=== PATIENT | female | born 1970 | race Caucasian/White ===

== ENCOUNTER 2017-02-22 18:58 | Emergency (ER) | payer OTHER ==
[~2017-02-22] VITALS: Ht 165.1 cm; Wt 84.8 kg
[~2017-02-22 18:58] MED LIST: ACETAMINOPHEN-1 EAC1 PO; CITRATE OF MAG300 ML PO; OMEPRAZOLE20 M1 PO
[2017-02-22] MEDS ORDERED: METFORMIN HCL1000 MG PO (19:18)
[2017-02-22] MEDS ORDERED: BUPROPION HCL75 MG PO (19:18)
== END 2017-02-22 20:10 | disposition home or self-care (01) ==
LOC: ED 18:58
DX: S63.501A Unspecified sprain of right wrist, initial encounter (principal); Z90.710 Acquired absence of both cervix and uterus; Z88.5 Allergy status to narcotic agent; Z79.84 Long term (current) use of oral hypoglycemic drugs; W19.XXXA Unspecified fall, initial encounter
CPT/HCPCS: 29125; 73110; 99283

== ENCOUNTER 2019-09-24 21:48 | Emergency (ER) | payer OTHER ==
[~2019-09-24] VITALS: Ht 165.1 cm; Wt 72.6 kg
[~2019-09-24 21:48] MED LIST changes: +BUPROPION HCL75 MG PO; +METFORMIN HCL1000 MG PO
[2019-09-24] MEDS ORDERED: OMEPRAZOLE20 MG PO (21:52)
[2019-09-24] MEDS ORDERED: CYCLOBENZAPRINE10 MG PO (23:56)
== END 2019-09-25 00:20 | disposition home or self-care (01) ==
LOC: ED 21:48
DX: S29.012A Strain of muscle and tendon of back wall of thorax, initial encounter (principal); V89.2XXA Person injured in unspecified motor-vehicle accident, traffic, initial encounter
CPT/HCPCS: 72080; 99284-25

== ENCOUNTER 2022-12-11 21:02 | Emergency (ER) | payer OTHER ==
[~2022-12-11] VITALS: Ht 165.1 cm; Wt 78.5 kg
[~2022-12-11 21:02] MED LIST changes: +CYCLOBENZAPRINE10 MG PO; +METFORMIN HCL500 M1 PO; +OMEPRAZOLE20 MG PO
[2022-12-11] MEDS ORDERED: CLEOCIN HCL300 MG PO (21:38)
[2022-12-11] MEDS ORDERED: CEPHALEXIN500 MG PO (21:41)
[2022-12-11] MEDS ORDERED: VITAMIN D21250 MCG PO (21:42)
[2022-12-11] MEDS ORDERED: OZEMPIC0.25 MG/01 SQ (21:42)
[2022-12-11] MEDS ORDERED: CLINDAMYCIN HC300 MG PO (21:57)
[2022-12-11 22:00] VITALS: BP 136/91
== END 2022-12-11 22:00 | disposition home or self-care (01) ==
LOC: ED 21:02
DX: H60.02 Abscess of left external ear (principal); R73.03 Prediabetes; Z88.5 Allergy status to narcotic agent; Z79.899 Other long term (current) drug therapy; Z79.84 Long term (current) use of oral hypoglycemic drugs
CPT/HCPCS: 69000; 99283-25

== ENCOUNTER 2023-02-19 11:36 | Day surgery (SDC) | payer OTHER ==
[~2023-02-19] VITALS: Ht 165.1 cm; Wt 77.3 kg
[~2023-02-19 11:36] MED LIST changes: +CEPHALEXIN500 MG PO; +CLEOCIN HCL300 MG PO; +CLINDAMYCIN HC300 MG PO; +OZEMPIC0.25 MG/01 SQ; +VITAMIN D21250 MCG PO
[2023-02-19] MEDS ORDERED: OMEPRAZOLE20 MG PO (11:46)
[2023-02-19 11:47] VITALS: BP 123/73
--- NOTE | 2023-02-19 13:28 | NUR ---
02/19/23 1328 Krystal Ang 1303- PT ARRIVES TO PACU, WHILE HOOKING UP THE MONITORS, PT SITS UP AND SAYS I'M READY TO GO. PT DENIES NAUSEA OR PAIN. ENCOURAGED TO REST AND JUST GOT TO RECOVERY. PT BACK TO SLEEP AT THIS TIME. CONTINUE TO MONITOR. 1322- PT BP IN THE 90'S SYSTOLICALLY, IV FLUIDS OPENED UP TO COMPLETE LITER. PT SAT UP AND GIVEN ICE WATER. TOLERATING WELL.
[2023-02-19 13:46] VITALS: BP 107/62
--- NOTE | 2023-02-24 17:03 | PATH ---
[facility] [address] [place], [place] [address] Signed SPECIMEN(S): A ANTRUM/PYLORUS BIOPSY SPECIMEN(S): B DUODENAL BIOPSY SPECIMEN(S): C LOWER ESOPHAGEAL BIOPSY SPECIMEN SOURCE: A. ANTRUM/PYLORUS BIOPSY B. DUODENAL BIOPSY C. LOWER ESOPHAGEAL BIOPSY CLINICAL HISTORY: Iron deficiency anemia, personal history of bariatric surgery. FINAL PATHOLOGIC DIAGNOSIS: A. Antrum / pylorus biopsy: - Benign gastric-type mucosa with focal slight chronic inflammation. - Negative for evidence of Helicobacter organisms on immunostained sections. B. Duodenal biopsy: - Benign duodenal mucosa, negative for specific diagnostic abnormality. C. Lower esophageal biopsy: - Benign esophageal epithelium, negative for increased epithelial eosinophils. - Negative for glandular mucosa. JVR:[facility]:C2NR MICROSCOPIC EXAMINATION: Histologic sections of all submitted blocks are examined by light microscopy. These findings, together with the gross examination, support the pathologic diagnosis. A Helicobacter pylori immunostain is performed with appropriate positive and negative controls on block (A1) and is negative for organisms. JVR:[facility] GROSS DESCRIPTION: A. The specimen, labeled and designated "Demario, T, 1." and designated on the requisition "antrum/pylorus stomach biopsy," is received in formalin and consists of four martinez soft tissue fragments that measure 0.1 to 0.4 cm in greatest dimension. The specimen is entirely submitted in (A1). B. The specimen, labeled and designated "Demario, T, 2. " and designated on the requisition "duodenum biopsy," is received in formalin and consists of four martinez soft tissue fragments that measure 0.1 to 0.4 cm in greatest dimension. The specimen is entirely submitted in (B1). PATIENT NAME: AAKASH DANIEL PATHOLOGY DATE OF : 74 REPORT #: [id number] PHYSICIAN: [facility] PCP: JAGRUTI BINGHAM PA-C REPORT IS CONFIDENTIAL AND NOT TO BE RELEASED WITHOUT AUTHORIZATION [facility] [address] [place], [place] [address] Signed C. The specimen, labeled and designated "Demario, T, 3." and designated on the requisition "lower esophagus biopsy," is received in formalin and consists of one white-martinez soft tissue fragment that measures 0.7 cm in greatest dimension. The specimen is entirely submitted in (C1). FB (under the direct supervision of a pathologist) The Gross Description was prepared using a voice recognition system. The report was reviewed for accuracy; however, sound-alike word errors, addition and/or deletions may occur. If there is any question about this report, please contact Client Services. ADDITIONAL NOTES: Immunohistochemical and/or in situ hybridization studies were performed on this case with the appropriate positive controls that react as expected. This test was developed and its performance characteristics determined by [facility]. It has not been cleared or approved by the U.S. Food and Drug Administration. The FDA has determined that such clearance or approval is not necessary. This test is used for clinical purposes. It should not be regarded as investigational or for research. [facility] is certified under the Clinical Laboratory Improvement Amendments of 1988 (CLIA) as qualified to perform high complexity clinical laboratory testing. This assay has not been validated for specimens that have been decalcified. PERFORMING LABORATORY: Technical component was performed by [facility], [facility] [place] [address] (CLIA# [id number]). Professional interpretation was performed by [facility], [address] [place] [address], [place] [address] (CLIA#: [id number]). Diagnostician: Thien Barrow MD Pathologist Electronically Signed 02/24/2023 Copies: ~ PATIENT NAME: AAKASH DANIEL PATHOLOGY DATE OF : 74 REPORT #: [id number] PHYSICIAN: [facility] PCP: JAGRUTI BINGHAM PA-C REPORT IS CONFIDENTIAL AND NOT TO BE RELEASED WITHOUT AUTHORIZATION
--- NOTE | 2023-02-25 10:30 | OR ---
[facility] [address] [place], [place] [address] Signed DATE OF OPERATION: 02/19/2023 SURGEON: Brody Mcdonald MD PREOPERATIVE DIAGNOSES: 1. Chronic anemia. 2. History of bariatric surgical operation (duodenal switch). PROCEDURE: Esophagogastroduodenoscopy with biopsy. ANESTHESIA: Intravenous sedation, fentanyl 100 mcg and Versed 6 mg. INDICATION: This 52-year-old white woman is a patient of Jamia Zayas. The patient underwent duodenal switch operation in 2001. She has had no hematemesis, blood per rectum, or other signs of bleeding though does have chronic anemia, likely related to her duodenal switch operation. She is admitted at this time to undergo upper endoscopy and colonoscopy is planned for the future. She understands the risk of bleeding, infection, and perforation related to upper endoscopy and wished to proceed. FINDINGS: Duodenal switch anatomy was noted. There was no evidence of ulcer, neoplasm, or other problem. CLOtest was negative 20 minutes post procedure. She had no sign of gastric outlet obstruction problem. The behzad duodenum (jejunal limb) was normal as well. DESCRIPTION OF PROCEDURE: The patient was brought to the endoscopy suite and placed in the lateral decubitus position, given intravenous sedation to the point of slurred speech and nystagmus after undergoing topical lidocaine, hypopharyngeal anesthesia. A bite block was placed. An Olympus video upper endoscope was passed in the hypopharynx. The vocal cords were normal. Scope was advanced to the esophagus and into the stomach. A narrow tubular like stomach was noted with a staple line noted laterally as would be expected. The scope was manipulated into the behzad duodenum. There was no sign of stricture, neoplasm, ulceration, or other problem. Biopsies were taken of the behzad duodenum (jejunal limb). The scope was then withdrawn to the stomach which was biopsied. CLOtest biopsies were obtained as well. Further withdrawal showed no abnormality of the esophagus though it was biopsied nevertheless. The scope was removed and the patient was taken to the recovery room in good condition. Electronically Signed By: BRODY MCDONALD MD 02/25/23 1030 PATIENT NAME: AAKASH DANIEL OPERATIVE REPORT DATE OF : 74 REPORT #: [id number] PHYSICIAN: BRODY MCDONALD MD PCP: JAMIA ZAYAS PA-C REPORT IS CONFIDENTIAL AND NOT TO BE RELEASED WITHOUT AUTHORIZATION [address] [address] Signed CONCLUDING DIAGNOSIS: No lesion to account for anemia based on upper endoscopy. Still most likely that anemia is related to enteric diversion from duodenum resulting in diminished iron absorption. PLAN: She is scheduled for a colonoscopy in the next few weeks. MD TABITHA Griffin/ALEJANDRO /[id number] cc: MD Jamia Lua PA-C Copies: XAVI LEON MD, CHLOE K PA-C ~ Electronically Signed By: BRODY MCDONALD MD 02/25/23 1030 PATIENT NAME: AAKASH DANIEL MOSES OPERATIVE REPORT DATE OF : 74 REPORT #: [id number] PHYSICIAN: BRODY MCDONALD MD PCP: JAMIA ZAYAS PA-C REPORT IS CONFIDENTIAL AND NOT TO BE RELEASED WITHOUT AUTHORIZATION
== END 2023-02-19 13:59 | disposition home or self-care (01) ==
LOC: DS 11:36 → OPS 11:36 → DS 13:00 → OPS 13:00
PROVIDERS: ATTEND Surgery
PROC: 0DB68ZX Excision of Stomach, Via Natural or Artificial Opening Endoscopic, Diagnostic (ICD-10-PCS; 2023-02-19)
PROC: 0DB38ZX Excision of Lower Esophagus, Via Natural or Artificial Opening Endoscopic, Diagnostic (ICD-10-PCS; 2023-02-19)
PROC: 0DB98ZX Excision of Duodenum, Via Natural or Artificial Opening Endoscopic, Diagnostic (ICD-10-PCS; principal; 2023-02-19 12:35)
DX: D50.9 Iron deficiency anemia, unspecified (principal); K29.50 Unspecified chronic gastritis without bleeding; Z98.84 Bariatric surgery status; E11.9 Type 2 diabetes mellitus without complications; Z90.711 Acquired absence of uterus with remaining cervical stump; Z79.84 Long term (current) use of oral hypoglycemic drugs
CPT/HCPCS: 99153; G0500; J2250; J3010; J7121

== ENCOUNTER 2023-03-02 06:25 | Day surgery (SDC) | payer OTHER ==
[~2023-03-02] VITALS: Ht 165.1 cm; Wt 77.3 kg
[2023-03-02 06:35] VITALS: BP 112/69
--- NOTE | 2023-03-02 08:07 | NUR ---
03/02/23 0807 Jen Fuller 0802-PT TO PACU IN LL POSITION. EYES OPEN. PT DENIES PAIN AND NAUSEA. BREATHING EASY AND UNLABORED. SPO2 >95% ON ROOM AIR. PT ENCOURAGED TO PASS GAS AND EDUCATED ON THE POC FOR PACU.
[2023-03-02 08:52] VITALS: BP 103/67
--- NOTE | 2023-03-02 11:49 | NUR ---
PT IN OVERALL GOOD SPIRITS. EXPRESSED SOME ANXIETY REGARDING PROCEDURE. I EXERCISED MINISTRY OF PRESENCE I LISTENED TO PT CONCERNS. PRAYED FOR PEACE AND AWARENESS OF DIVINE PRESENCE.
--- NOTE | 2023-03-06 02:13 | OR ---
[facility] [address] [place], [place] [address] Signed DATE OF OPERATION: 03/02/2023 SURGEON: Brody Mcdonald MD PREOPERATIVE DIAGNOSIS: Colon screening. POSTOPERATIVE DIAGNOSIS: Normal colon. PROCEDURE: Total colonoscopy to cecum. ANESTHESIA: Intravenous sedation; fentanyl 150 mcg and Versed 5 mg. INDICATION: This 52-year-old white woman is a patient of BRITTNEE Art. She has no symptoms of bleeding, diarrhea or constipation and no family history of colon cancer. She is here for screening colonoscopy. She understands the risk of bleeding, infection and perforation related to colonoscopy and wished to proceed. FINDINGS: The prep was good. Complete colonoscopy was undertaken to the cecum without question. She had no evidence of diverticular formation, colitis or cancer. She had no polyps. DESCRIPTION OF PROCEDURE: The patient was brought to the endoscopy suite and placed in the lateral decubitus position, given intravenous sedation to the point of slurred speech and nystagmus. Digital rectal examination was normal. An Olympus video colonoscope was passed in the rectum and manipulated throughout the colon ultimately intubating the cecum itself. The ileocecal valve and appendiceal orifice were normal. Scope was withdrawn from that point and examination throughout showed no sign of abnormality; specifically no polyps, diverticular formation, colitis or cancer. Retroflexed view was normal as well. The scope was removed and the patient was taken to the recovery room in good condition. CONCLUDING DIAGNOSIS: Normal colon. Electronically Signed By: BRODY MCDONALD MD 03/06/23 0213 PATIENT NAME: AAKASH DANIEL OPERATIVE REPORT DATE OF : 74 REPORT #: [id number] PHYSICIAN: BRODY MCDONALD MD PCP: JAMIA ZAYAS PA-C REPORT IS CONFIDENTIAL AND NOT TO BE RELEASED WITHOUT AUTHORIZATION [address] [place], [place] [address] Signed PLAN: Recommend repeat colonoscopy in 10 years, sooner if clinical symptoms should occur. She will return to the ongoing care of BRITTNEE Art. MD TABITHA Griffin/ALEJANDRO /[id number] cc: Jamia Zayas PA-C Copies: JAMIA ZAYAS PA-C ~ Electronically Signed By: BRODY MCDONALD MD 03/06/23 0213 PATIENT NAME: AAKASH DANIEL OPERATIVE REPORT DATE OF : 74 REPORT #: [id number] PHYSICIAN: BRODY MCDONALD MD PCP: JAMIA ZAYAS PA-C REPORT IS CONFIDENTIAL AND NOT TO BE RELEASED WITHOUT AUTHORIZATION
== END 2023-03-02 08:45 | disposition home or self-care (01) ==
LOC: DS 06:25 → OPS 06:25 → DS 07:30 → OPS 08:45
PROVIDERS: ATTEND Surgery
PROC: 0DJD8ZZ Inspection of Lower Intestinal Tract, Via Natural or Artificial Opening Endoscopic (ICD-10-PCS; principal; 2023-03-02 07:30)
DX: Z12.11 Encounter for screening for malignant neoplasm of colon (principal); D50.9 Iron deficiency anemia, unspecified; Z98.84 Bariatric surgery status; Z90.711 Acquired absence of uterus with remaining cervical stump; E11.9 Type 2 diabetes mellitus without complications
CPT/HCPCS: 99153; G0500; J2250; J3010; J7121